=== PATIENT | male | born 1930 | race Caucasian/White ===

== ENCOUNTER → 2016-11-15 | Outpatient (CLI) | payer OTHER ==
[2016-11-15 12:44] LABS: Basophils # (auto) 0 uL; Basophils % (auto) 0.4 % (0.0-2.0); CONDITION Y; Eosinophils # (auto) 0.2 uL; Eosinophils % (auto) 2.5 % (0.0-7.0); Hematocrit 44.3 % (41.0-53.0); Hemoglobin 15.3 g/dL (13.5-17.5); Lymphocytes # (auto) 1.5 uL; Lymphocytes % (auto) 20.9 % (10.0-50.0); Mean Corpuscular Hemoglobin 31.5 pg (28.0-32.0); Mean Corpuscular Hgb Conc. 34.4 g/dL (32.0-36.0); Mean Corpuscular Volume 91.5 fL (80.0-100.0); Mean Platelet Volume 8.5 fL (7.4-10.4); Monocytes # (auto) 0.7 uL; Monocytes % (auto) 9.4 % (0.0-12.0); Neutrophils # (auto) 4.8 uL; Neutrophils % (auto) 66.8 % (37.0-80.0); Platelet Count (auto) 216 10^3/uL (140-450); White Blood Cell 7.2 10^3/uL (4.4-10.8)
[2016-11-15 12:46] LABS: Urine Bilirubin Negative (Negative); Urine Blood Negative /uL (Negative); Urine Color Yellow (Yellow); Urine Glucose Normal (Normal); Urine Ketone Negative (Negative); Urine Mucus FEW (None Seen); Urine Nitrite Negative (Negative); Urine RBC <1 /hpf (0 - 3); Urine Squamous Epithelial Cell FEW /hpf (<5); Urine pH 5.5 (5.0-8.0)
[2016-11-15 13:04] LABS: Albumin 4.1 g/dL (3.4-5.0); BUN/Creatinine Ratio 23.6; Bilirubin, Total 0.9 mg/dL (0.2-1.0); Calcium 9.1 mg/dL (8.5-10.1); Potassium 4.2 mmol/L (3.5-5.1); Total Protein 7.1 g/dL (6.4-8.2)
== END | disposition home or self-care (01) ==
LOC: LAB 12:14
PROVIDERS: ATTEND Internal Medicine
DX: I10 Essential (primary) hypertension (principal); E78.2 Mixed hyperlipidemia; E55.9 Vitamin D deficiency, unspecified
CPT/HCPCS: 36415; 80053; 81001; 82306; 84153; 84443; 85025

== ENCOUNTER → 2017-04-03 | Outpatient (CLI) | payer OTHER | END | disposition home or self-care (01) | LOC: XYW 09:24 | PROVIDERS: ATTEND Internal Medicine Cardiovascular Disease | DX: I42.9 Cardiomyopathy, unspecified (principal) | CPT/HCPCS: 93306 ==

== ENCOUNTER → 2017-06-05 | Outpatient (CLI) | payer OTHER ==
[2017-06-05 10:06] LABS: Basophils # (auto) 0 uL; Basophils % (auto) 0.4 % (0.0-2.0); Eosinophils # (auto) 0.1 uL; Hematocrit 45.8 % (41.0-53.0); Hemoglobin 15.5 g/dL (13.5-17.5); Lymphocytes # (auto) 1.5 uL; Lymphocytes % (auto) 21.9 % (10.0-50.0); Mean Corpuscular Hgb Conc. 33.9 g/dL (32.0-36.0); Mean Corpuscular Volume 91.5 fL (80.0-100.0); Monocytes # (auto) 0.6 uL; Monocytes % (auto) 8.3 % (0.0-12.0); Neutrophils # (auto) 4.6 uL; Neutrophils % (auto) 67.4 % (37.0-80.0); Nucleated Red Blood Cells % 0.2 %; Platelet Count (auto) 175 10^3/uL (140-450); Red Cell Distribution Width 13.7 % (11.8-14.3); White Blood Cell 6.8 10^3/uL (4.4-10.8)
[2017-06-05 10:40] LABS: BUN/Creatinine Ratio 14.3; Bilirubin, Total 1.1 mg/dL (0.2-1.0); Calcium 8.9 mg/dL (8.5-10.1); Potassium 4.2 mmol/L (3.5-5.1); Total Protein 7.2 g/dL (6.4-8.2)
== END | disposition home or self-care (01) ==
LOC: LAB 09:40
PROVIDERS: ATTEND Physician Assistant
DX: I11.0 Hypertensive heart disease with heart failure (principal); I50.20 Unspecified systolic (congestive) heart failure; I25.5 Ischemic cardiomyopathy; E78.4 Other hyperlipidemia
CPT/HCPCS: 36415; 80053; 80061; 85025

== ENCOUNTER → 2018-07-28 | Outpatient (CLI) | payer OTHER ==
[2018-07-28 09:12] LABS: Basophils # (auto) 0 uL; Basophils % (auto) 0.3 % (0.0-2.0); Eosinophils # (auto) 0.1 uL; Eosinophils % (auto) 1.9 % (0.0-7.0); Hematocrit 44.7 % (41.0-53.0); Hemoglobin 15.3 g/dL (13.5-17.5); Lymphocytes # (auto) 1.1 uL; Lymphocytes % (auto) 17.4 % (10.0-50.0); Mean Corpuscular Hemoglobin 31.9 pg (28.0-32.0); Mean Corpuscular Hgb Conc. 34.2 g/dL (32.0-36.0); Mean Corpuscular Volume 93.1 fL (80.0-100.0); Monocytes # (auto) 0.5 uL; Monocytes % (auto) 8.1 % (0.0-12.0); Neutrophils # (auto) 4.6 uL; Neutrophils % (auto) 72.3 % (37.0-80.0); Platelet Count (auto) 158 10^3/uL (140-450); Red Cell Distribution Width 13.9 % (11.8-14.3); White Blood Cell 6.3 10^3/uL (4.4-10.8)
[2018-07-28 10:22] LABS: Albumin 4.1 g/dL (3.4-5.0); Potassium 4.2 mmol/L (3.5-5.1)
[2018-07-28 10:29] LABS: BUN/Creatinine Ratio 18.2; Bilirubin, Total 0.9 mg/dL (0.2-1.0); Calcium 8.9 mg/dL (8.5-10.1); Total Protein 7.1 g/dL (6.4-8.2)
== END | disposition home or self-care (01) ==
LOC: LAB 08:23
PROVIDERS: ATTEND Physician Assistant
DX: Z12.5 Encounter for screening for malignant neoplasm of prostate (principal); I42.9 Cardiomyopathy, unspecified; I25.9 Chronic ischemic heart disease, unspecified; I10 Essential (primary) hypertension
CPT/HCPCS: 36415; 80053; 80061; 84153; 85025

== ENCOUNTER → 2019-02-03 | Outpatient (CLI) | payer OTHER ==
[2019-02-03 13:25] LABS: Urine Blood Negative /uL (Negative); Urine Specific Gravity 1.017 (1.001-1.035)
== END | disposition home or self-care (01) ==
LOC: LAB 12:38
DX: R35.1 Nocturia (principal); R53.1 Weakness
CPT/HCPCS: 81003; 84153

== ENCOUNTER 2019-04-09 05:53 | Emergency (ER) | payer OTHER ==
[~2019-04-09] VITALS: Ht 177.8 cm; Wt 77.1 kg
[2019-04-09 07:12] LABS: Basophils # (auto) 0 uL; Basophils % (auto) 0.1 % (0.0-2.0); Eosinophils # (auto) 0 uL; Eosinophils % (auto) 0.2 % (0.0-7.0); Hematocrit 32.3 % (41.0-53.0); Hemoglobin 11.3 g/dL (13.5-17.5); Lymphocytes # (auto) 0.6 uL; Lymphocytes % (auto) 6.3 % (10.0-50.0); Mean Corpuscular Hemoglobin 32.6 pg (28.0-32.0); Mean Corpuscular Volume 93.4 fL (80.0-100.0); Monocytes # (auto) 0.7 uL; Monocytes % (auto) 6.9 % (0.0-12.0); Neutrophils # (auto) 8.7 uL; Neutrophils % (auto) 86.5 % (37.0-80.0); Platelet Count (auto) 135 10^3/uL (140-450); Red Blood Cells 3.46 10^6/uL (4.5-5.90); Red Cell Distribution Width 13.7 % (11.8-14.3)
[2019-04-09 07:37] LABS: Albumin 3.2 g/dL (3.4-5.0); Anion Gap 8 (5-15); Blood Urea Nitrogen 19 mg/dL (7-18); Calcium 7.8 mg/dL (8.5-10.1); Carbon Dioxide 25 mmol/L (21-32); Chloride 113 mmol/L (98-107); Glucose 109 mg/dL (74-106); Magnesium 2.1 mg/dL (1.6-2.6); Potassium 3.6 mmol/L (3.5-5.1); Sodium 146 mmol/L (136-145)
[2019-04-09 07:42] LABS: Alanine Aminotransferase 20 U/L (16-61); Alkaline Phosphatase 65 U/L (45-117); Aspartate Aminotransferase 20 U/L (15-37); BUN/Creatinine Ratio 25.3; Bilirubin, Total 0.9 mg/dL (0.2-1.0); GFR African American 127 mL/min; GFR Non-African American 105 mL/min; Total Protein 5.5 g/dL (6.4-8.2)
[2019-04-09 08:00] VITALS: BP 123/48
[2019-04-09 08:34] LABS: Urine Bacteria NONE SEEN /hpf (None Seen); Urine Blood Negative /uL (Negative); Urine Hyaline Cast FEW /lpf (0 - 2); Urine Mucus FEW (None Seen); Urine Specific Gravity 1.028 (1.001-1.035); Urine WBC 4 /hpf (0 - 3)
== END 2019-04-09 10:50 | disposition home or self-care (01) ==
LOC: ER 05:53 → EDBD 05:53 → ER 10:50
DX: E87.0 Hyperosmolality and hypernatremia (principal); E46 Unspecified protein-calorie malnutrition; I10 Essential (primary) hypertension
CPT/HCPCS: 36415; 70450; 80053; 81001; 83735; 84484; 85025; 93005

== ENCOUNTER 2019-06-26 12:54 | Emergency (ER) | payer OTHER ==
[~2019-06-26] VITALS: Ht 177.8 cm; Wt 79.4 kg
[2019-06-26 15:29] LABS: Basophils # (auto) 0 uL; Basophils % (auto) 0.4 % (0.0-2.0); Eosinophils # (auto) 0.2 uL; Eosinophils % (auto) 2.8 % (0.0-7.0); Hematocrit 38.9 % (41.0-53.0); Hemoglobin 13.3 g/dL (13.5-17.5); Lymphocytes # (auto) 1.1 uL; Lymphocytes % (auto) 17.8 % (10.0-50.0); Mean Corpuscular Hemoglobin 32.4 pg (28.0-32.0); Mean Corpuscular Hgb Conc. 34.1 g/dL (32.0-36.0); Monocytes # (auto) 0.5 uL; Monocytes % (auto) 8.4 % (0.0-12.0); Neutrophils # (auto) 4.3 uL; Neutrophils % (auto) 70.6 % (37.0-80.0); Nucleated Red Blood Cells % 0.1 %; Platelet Count (auto) 170 10^3/uL (140-450); White Blood Cell 6.1 10^3/uL (4.4-10.8)
[2019-06-26 15:46] LABS: Albumin 3.7 g/dL (3.4-5.0); Calcium 8.7 mg/dL (8.5-10.1); Potassium 4.1 mmol/L (3.5-5.1)
[2019-06-26 15:48] LABS: BUN/Creatinine Ratio 26.3
[2019-06-26 15:53] LABS: Bilirubin, Total 0.5 mg/dL (0.2-1.0); Total Protein 6.4 g/dL (6.4-8.2)
[2019-06-26] MEDS ORDERED: IOHEXOL 300 MG/ML 100ML BOTTLE IJ ONE (16:03)
[2019-06-26 18:41] VITALS: BP 143/92
== END 2019-06-26 18:52 | disposition home or self-care (01) ==
LOC: ER 13:06
DX: K40.90 Unilateral inguinal hernia, without obstruction or gangrene, not specified as recurrent (principal); I10 Essential (primary) hypertension; Z86.73 Personal history of transient ischemic attack (TIA), and cerebral infarction without residual deficits
CPT/HCPCS: 36415; 74177; 80053; 83690; 85025; 93005; 99285; Q9967

== ENCOUNTER → 2019-07-09 | Outpatient (CLI) | payer OTHER ==
[2019-07-09 10:46] LABS: Calcium 9.5 mg/dL (8.5-10.1)
[2019-07-09 10:50] LABS: BUN/Creatinine Ratio 27.5; Magnesium 2.1 mg/dL (1.6-2.6)
== END | disposition home or self-care (01) ==
LOC: LAB 10:05
PROVIDERS: ATTEND Internal Medicine
DX: I25.119 Atherosclerotic heart disease of native coronary artery with unspecified angina pectoris (principal); I10 Essential (primary) hypertension
CPT/HCPCS: 36415; 80048; 80061; 83735; 83880

== ENCOUNTER → 2019-07-22 | Outpatient (CLI) | payer OTHER ==
[2019-07-13 12:08] LABS: Basophils # (auto) 0 10 ^3/uL (0-0.2); Basophils % (auto) 0.4 % (0.0-2.0); Eosinophils # (auto) 0.2 10 ^3/uL (0-0.8); Hematocrit 41.4 % (41.0-53.0); Hemoglobin 14.4 g/dL (13.5-17.5); Lymphocytes # (auto) 1.4 10 ^3/uL (0.4-5.4); Lymphocytes % (auto) 23.3 % (10.0-50.0); Mean Corpuscular Hemoglobin 32.2 pg (28.0-32.0); Mean Corpuscular Hgb Conc. 34.7 g/dL (32.0-36.0); Mean Corpuscular Volume 92.9 fL (80.0-100.0); Monocytes # (auto) 0.5 10 ^3/uL (0-1.3); Monocytes % (auto) 9.3 % (0.0-12.0); Neutrophils # (auto) 3.7 10 ^3/uL (1.6-8.6); Nucleated Red Blood Cells % 0.1 %; Platelet Count (auto) 154 10^3/uL (140-450); Red Blood Cells 4.46 10^6/uL (4.5-5.90); Red Cell Distribution Width 13.7 % (11.8-14.3); White Blood Cell 5.8 10^3/uL (4.4-10.8)
[2019-07-13 12:20] LABS: Urine Bacteria NONE SEEN /hpf (None Seen); Urine Blood Negative /uL (Negative); Urine WBC 2 /hpf (0 - 3)
[2019-07-13 12:36] LABS: INR 1.11 (0.9-1.15); Partial Thromboplastin Time 28.8 sec (23.64-32.05)
[2019-07-13 12:49] LABS: Potassium 5.1 mmol/L (3.5-5.1)
[2019-07-13 13:00] LABS: Albumin 4.3 g/dL (3.4-5.0); BUN/Creatinine Ratio 34.4; Bilirubin, Total 1.1 mg/dL (0.2-1.0); Calcium 9.6 mg/dL (8.5-10.1); Total Protein 7.4 g/dL (6.4-8.2)
[2019-07-15 08:50] VITALS: BP 128/72
[2019-07-20 14:11] LABS: Basophils # (auto) 0 10 ^3/uL (0-0.2); Basophils % (auto) 0.5 % (0.0-2.0); Eosinophils # (auto) 0.1 10 ^3/uL (0-0.8); Eosinophils % (auto) 2.4 % (0.0-7.0); Hemoglobin 13.1 g/dL (13.5-17.5); Lymphocytes # (auto) 1.2 10 ^3/uL (0.4-5.4); Lymphocytes % (auto) 20.4 % (10.0-50.0); Mean Corpuscular Hemoglobin 32.5 pg (28.0-32.0); Mean Corpuscular Hgb Conc. 34.5 g/dL (32.0-36.0); Mean Corpuscular Volume 94.2 fL (80.0-100.0); Monocytes # (auto) 0.5 10 ^3/uL (0-1.3); Monocytes % (auto) 9.3 % (0.0-12.0); Neutrophils # (auto) 3.9 10 ^3/uL (1.6-8.6); Neutrophils % (auto) 67.4 % (37.0-80.0); Platelet Count (auto) 133 10^3/uL (140-450); Red Blood Cells 4.03 10^6/uL (4.5-5.90); Red Cell Distribution Width 13.8 % (11.8-14.3); White Blood Cell 5.7 10^3/uL (4.4-10.8)
[2019-07-20 14:22] LABS: INR 1.15 (0.9-1.15); Partial Thromboplastin Time 29.1 sec (23.64-32.05)
[2019-07-20 14:29] LABS: Potassium 4.2 mmol/L (3.5-5.1)
[2019-07-20 14:36] LABS: Albumin 3.8 g/dL (3.4-5.0); Bilirubin, Total 0.9 mg/dL (0.2-1.0); Calcium 9.4 mg/dL (8.5-10.1); Total Protein 6.6 g/dL (6.4-8.2)
[~2019-07-22] VITALS: Ht 177.8 cm; Wt 68.0 kg
[~2019-07-22] MED LIST: ASPI-404 PO; BENA5TAB5 PO; BUPIVACAINE 0.25% INJ 50ML VIAL ONE; BUPIVACAINE W/ EPINEPH 0.25% INJ 50ML MDV ONE; CARV6.2551 PO; CLOP75TA41 PO; FINA5TAB4 PO; FURO40TA4 PO; MELA3TAB27 PO; METO25TA5 PO; MULT1TAB56 PO; NITR1SPR TL; SIMV-8 PO; TAMS0.4C36 PO; ZOLP-158 PO; ceFAZolin 1GM/50ML 50 ML IV ONE
== END | disposition home or self-care (01) ==
LOC: SUR 07-15 08:36 → EDSTATUS 10:15 → LAB 13:12
PROVIDERS: ATTEND Surgery
DX: K40.90 Unilateral inguinal hernia, without obstruction or gangrene, not specified as recurrent (principal); Z53.8 Procedure and treatment not carried out for other reasons; I72.9 Aneurysm of unspecified site; Z98.890 Other specified postprocedural states; Z79.899 Other long term (current) drug therapy; Z79.01 Long term (current) use of anticoagulants
CPT/HCPCS: 36415; 80053; 81001; 85025; 85610; 85730; J0690; J3490

== ENCOUNTER 2019-09-09 06:57 | Inpatient (IN) | payer OTHER ==
[2019-09-07 13:09] LABS: Basophils # (auto) 0 10 ^3/uL (0-0.2); Basophils % (auto) 0.3 % (0.0-2.0); Eosinophils # (auto) 0.1 10 ^3/uL (0-0.8); Eosinophils % (auto) 1.7 % (0.0-7.0); Hematocrit 39.6 % (41.0-53.0); Hemoglobin 13.5 g/dL (13.5-17.5); Lymphocytes % (auto) 14.9 % (10.0-50.0); Mean Corpuscular Hemoglobin 32.7 pg (28.0-32.0); Monocytes # (auto) 0.6 10 ^3/uL (0-1.3); Neutrophils % (auto) 74.1 % (37.0-80.0); Nucleated Red Blood Cells % 0.2 %; Platelet Count (auto) 156 10^3/uL (140-450); Red Blood Cells 4.13 10^6/uL (4.5-5.90); Red Cell Distribution Width 13.7 % (11.8-14.3); White Blood Cell 6.7 10^3/uL (4.4-10.8)
[2019-09-07 13:15] LABS: Urine Bacteria NONE SEEN /hpf (None Seen); Urine Blood Negative /uL (Negative); Urine Hyaline Cast MANY /lpf (0 - 2); Urine Mucus FEW (None Seen); Urine Specific Gravity 1.013 (1.001-1.035); Urine WBC 4 /hpf (0 - 3)
[2019-09-07 13:23] LABS: INR 1.14 (0.9-1.15); Partial Thromboplastin Time 28.2 sec (23.64-32.05)
[2019-09-07 13:29] LABS: Calcium 8.7 mg/dL (8.5-10.1); Potassium 3.6 mmol/L (3.5-5.1)
[2019-09-07 13:35] LABS: Albumin 3.8 g/dL (3.4-5.0); BUN/Creatinine Ratio 22.4; Bilirubin, Total 0.8 mg/dL (0.2-1.0); Total Protein 6.7 g/dL (6.4-8.2)
[~2019-09-09] VITALS: Ht 177.8 cm; Wt 60.0 kg
[~2019-09-09 06:57] MED LIST changes: -ASPI-404 PO; -BUPIVACAINE 0.25% INJ 50ML VIAL ONE; -BUPIVACAINE W/ EPINEPH 0.25% INJ 50ML MDV ONE; -CARV6.2551 PO; -MELA3TAB27 PO; -ZOLP-158 PO; -ceFAZolin 1GM/50ML 50 ML IV ONE
[2019-09-09] MEDS ORDERED: ceFAZolin 1GM/50ML 50 ML IV ONE (07:03)
[2019-09-09] MEDS ORDERED: BUPIVACAINE W/ EPINEPH 0.25% INJ 50ML MDV ONE (08:10)
[2019-09-09] MEDS ORDERED: LIDOCAINE 1% HCL (LOCAL ANESTH.) INJ 20ML MDV ONE (08:39)
[2019-09-09] MEDS ORDERED: SUCCINYLCHOLINE CHLORIDE 20 MG/ML 10ML VIAL IV ONE (08:39)
[2019-09-09] MEDS ORDERED: ROCURONIUM 10MG/ML 10ML VIAL IV ONE (08:43)
[2019-09-09] MEDS ORDERED: ETOMIDATE (2MG/ML) 20ML VIAL IV ONE (08:43)
[2019-09-09] MEDS ORDERED: FUROSEMIDE 20 MG/2 ML VIAL ONE (09:01)
[2019-09-09] MEDS ORDERED: DexAMETHasone SOD PHOS 10MG/1ML VIAL INJ ONE (09:18)
[2019-09-09] MEDS ORDERED: NALOXONE HCL 0.4 MG/ML VIAL IV PRN (09:30)
[2019-09-09] MEDS ORDERED: ONDANSETRON HCL 4 MG/2 ML VIAL IV PRN (09:30)
[2019-09-09] MEDS ORDERED: HYDROmorphone HCL 2 MG/ML VL IV PRN (09:30)
[2019-09-09] MEDS ORDERED: GLYCOPYRROLATE 0.2 MG/ML 1ML VIAL ONE (09:41)
[2019-09-09] MEDS ORDERED: NEOSTIGMINE 1 MG/ML INJ (10mg/10ML VIAL) ONE (09:41)
[2019-09-09] MEDS ORDERED: hydrALAZINE HCL 20 MG/ML VL IV ONE (09:56)
[2019-09-09] MEDS ORDERED: hydrALAZINE HCL 20 MG/ML VL ONE (09:56)
[2019-09-09] MEDS ORDERED: MAGNESIUM SULFATE 1GM/100ML 100 ML IV ONE (11:00)
[2019-09-09] MEDS ORDERED: NITROGLYCERIN 0.4 MG SL TAB SL PRN (11:00)
[2019-09-09] MEDS ORDERED: MORPHINE SULF INJ 2 MG/ML SYRINGE 1ML IV PRN (11:00)
[2019-09-09] MEDS ORDERED: HYDROmorphone HCL 2 MG/ML VL ONE (12:04)
[2019-09-09] MEDS ORDERED: HALOPERIDOL LACTATE 5 MG/ML INJ VIAL IM ONE (12:45)
[2019-09-09] MEDS: ACETAMINOPHEN/CODEINE#3 (300/30mg) TAB PO PRN (13:56)
[2019-09-09] MEDS: ceFAZolin 1GM/50ML 50 ML IV SCH ×2 (14:00→22:00)
[2019-09-09 16:13] LABS: Calcium 8.8 mg/dL (8.5-10.1); Potassium 3.6 mmol/L (3.5-5.1)
[2019-09-09 16:16] LABS: BUN/Creatinine Ratio 21.8
[2019-09-09] MEDS: TAMSULOSIN HYDROCHLORIDE 0.4 MG CAP PO SCH (17:52)
[2019-09-09] MEDS: FUROSEMIDE 40 MG TAB PO SCH (17:53)
[2019-09-09] MEDS: ATORVASTATIN 20 MG TAB PO SCH (19:51)
[2019-09-09] MEDS: METOPROLOL TARTRATE 25 MG TAB PO SCH (19:52)
[2019-09-09] MEDS ORDERED: MELA3TAB27 PO (23:23)
[2019-09-09] MEDS: MORPHINE SULF INJ 2 MG/ML SYRINGE 1ML IV PRN (23:39)
[2019-09-10] MEDS: ACETAMINOPHEN/CODEINE#3 (300/30mg) TAB PO PRN ×2 (04:08→20:40)
[2019-09-10 04:27] VITALS: BP 149/93
[2019-09-10 04:29] VITALS: BP 151/90
[2019-09-10] MEDS: ceFAZolin 1GM/50ML 50 ML IV SCH (05:26)
[2019-09-10] MEDS: FUROSEMIDE 40 MG TAB PO SCH ×2 (05:36→18:41)
[2019-09-10 06:10] LABS: Basophils # (auto) 0 10 ^3/uL (0-0.2); Basophils % (auto) 0.2 % (0.0-2.0); Eosinophils # (auto) 0 10 ^3/uL (0-0.8); Eosinophils % (auto) 0.2 % (0.0-7.0); Hematocrit 42.3 % (41.0-53.0); Lymphocytes # (auto) 1.6 10 ^3/uL (0.4-5.4); Lymphocytes % (auto) 13.5 % (10.0-50.0); Mean Corpuscular Hemoglobin 32.2 pg (28.0-32.0); Mean Corpuscular Hgb Conc. 33.1 g/dL (32.0-36.0); Mean Corpuscular Volume 97.2 fL (80.0-100.0); Monocytes # (auto) 1.3 10 ^3/uL (0-1.3); Monocytes % (auto) 10.9 % (0.0-12.0); Neutrophils # (auto) 8.7 10 ^3/uL (1.6-8.6); Neutrophils % (auto) 75.2 % (37.0-80.0); Platelet Count (auto) 166 10^3/uL (140-450); Red Blood Cells 4.35 10^6/uL (4.5-5.90); Red Cell Distribution Width 13.9 % (11.8-14.3); White Blood Cell 11.6 10^3/uL (4.4-10.8)
[2019-09-10 06:31] LABS: Albumin 3.7 g/dL (3.4-5.0); Calcium 8.9 mg/dL (8.5-10.1); Magnesium 2.6 mg/dL (1.6-2.6); Potassium 3.5 mmol/L (3.5-5.1)
[2019-09-10 06:33] LABS: Bilirubin, Total 1.4 mg/dL (0.2-1.0); Total Protein 6.8 g/dL (6.4-8.2)
[2019-09-10 09:00] VITALS: BP 107/69
[2019-09-10] MEDS: FINASTERIDE 5 MG TAB PO SCH (10:37)
[2019-09-10] MEDS: PANTOPRAZOLE 40 MG TAB PO SCH (10:37)
[2019-09-10] MEDS: METOPROLOL TARTRATE 25 MG TAB PO SCH (10:37)
[2019-09-10] MEDS ORDERED: cefTRIAXone 1GM/50ML D5W 50 ML IV ONE (12:00)
[2019-09-10 14:00] VITALS: BP 145/83
[2019-09-10] MEDS: TAMSULOSIN HYDROCHLORIDE 0.4 MG CAP PO SCH (18:41)
[2019-09-10 20:00] VITALS: BP 153/81
[2019-09-10] MEDS: ATORVASTATIN 20 MG TAB PO SCH (22:00)
[2019-09-11] VITALS (16 sets, daily range): BP systolic 102–153; BP diastolic 56–96
[2019-09-11] MEDS: METOPROLOL TARTRATE 25 MG TAB PO SCH ×3 (00:33→21:08)
[2019-09-11] MEDS: MORPHINE SULF INJ 2 MG/ML SYRINGE 1ML IV PRN (01:07)
[2019-09-11 03:36] LABS: Basophils # (auto) 0 10 ^3/uL (0-0.2); Basophils % (auto) 0.1 % (0.0-2.0); Eosinophils # (auto) 0 10 ^3/uL (0-0.8); Eosinophils % (auto) 0.1 % (0.0-7.0); Hematocrit 39.2 % (41.0-53.0); Hemoglobin 13.3 g/dL (13.5-17.5); Lymphocytes % (auto) 10.6 % (10.0-50.0); Mean Corpuscular Hemoglobin 32.4 pg (28.0-32.0); Mean Corpuscular Hgb Conc. 33.9 g/dL (32.0-36.0); Mean Corpuscular Volume 95.6 fL (80.0-100.0); Monocytes % (auto) 10.9 % (0.0-12.0); Neutrophils # (auto) 7.1 10 ^3/uL (1.6-8.6); Neutrophils % (auto) 78.3 % (37.0-80.0); Platelet Count (auto) 146 10^3/uL (140-450); Red Blood Cells 4.11 10^6/uL (4.5-5.90); Red Cell Distribution Width 13.7 % (11.8-14.3); White Blood Cell 9.1 10^3/uL (4.4-10.8)
[2019-09-11 03:59] LABS: BUN/Creatinine Ratio 25.3; Calcium 8.2 mg/dL (8.5-10.1); Potassium 3.4 mmol/L (3.5-5.1)
[2019-09-11 04:30] LABS: INR 1.05 (0.9-1.15); Partial Thromboplastin Time 32.3 sec (23.64-32.05)
[2019-09-11] MEDS: FUROSEMIDE 40 MG TAB PO SCH ×2 (06:00→17:57)
[2019-09-11] MEDS ORDERED: POTASSIUM CHL 20 Meq TABLET PO ONE (07:30)
[2019-09-11] MEDS: cefTRIAXone 1GM/50ML D5W 50 ML IV SCH (08:38)
[2019-09-11] MEDS: FINASTERIDE 5 MG TAB PO SCH (08:39)
[2019-09-11] MEDS: PANTOPRAZOLE 40 MG TAB PO SCH (08:40)
[2019-09-11] MEDS ORDERED: IODIXANOL 320MG/ML 100ML BTL IV ONE ×3 (09:28→10:36)
[2019-09-11] MEDS ORDERED: LIDOCAINE 2%HCL (LOCAL ANESTH.) INJ 20ML MDV ONE (09:28)
[2019-09-11] MEDS ORDERED: VERAPAMIL 2.5MG/ML INJ 2ML VIAL IV ONE (09:34)
[2019-09-11] MEDS ORDERED: fentaNYL CITRATE 100 MCG/2 ML VL ONE (09:34)
[2019-09-11] MEDS ORDERED: HEPARIN SODIUM (PORCINE) 5000 UNITS/ML 1ML VIAL ONE (09:34)
[2019-09-11] MEDS ORDERED: MIDAZOLAM HCL 1MG/1ML-2 ML VIAL ONE (09:35)
[2019-09-11] MEDS ORDERED: SODIUM CHL 0.9% 50 ML ONE (10:06)
[2019-09-11] MEDS ORDERED: ANGIOMAX 250 MG VIAL IV ONE (10:06)
[2019-09-11] MEDS ORDERED: hydrALAZINE HCL 20 MG/ML VL ONE (10:11)
[2019-09-11] MEDS ORDERED: VANCOMYCIN 1GM/250ML 250 ML IV ONE (11:04)
[2019-09-11] MEDS: TAMSULOSIN HYDROCHLORIDE 0.4 MG CAP PO SCH (17:57)
[2019-09-11] MEDS: ATORVASTATIN 20 MG TAB PO SCH (20:44)
[2019-09-12] VITALS: BP 141/73
[2019-09-12] MEDS ORDERED: LABETALOL HCL 5 MG/ML ML 20ML VIAL IV ONE (00:10)
[2019-09-12] MEDS: LABETALOL HCL 5 MG/ML 4ML SYRINGE IV PRN ×2 (00:15→03:58)
[2019-09-12] MEDS: FUROSEMIDE 40 MG TAB PO SCH ×2 (05:53→17:47)
[2019-09-12 08:00] VITALS: BP 150/78
[2019-09-12] MEDS: PANTOPRAZOLE 40 MG TAB PO SCH (09:59)
[2019-09-12] MEDS: cefTRIAXone 1GM/50ML D5W 50 ML IV SCH (09:59)
[2019-09-12] MEDS: FINASTERIDE 5 MG TAB PO SCH (09:59)
[2019-09-12] MEDS: METOPROLOL TARTRATE 25 MG TAB PO SCH ×2 (09:59→20:28)
[2019-09-12 12:00] VITALS: BP 139/64
[2019-09-12] MEDS ORDERED: POTASSIUM CHL 20 Meq TABLET PO ONE (12:30)
[2019-09-12 15:45] VITALS: BP 150/85
[2019-09-12] MEDS: TAMSULOSIN HYDROCHLORIDE 0.4 MG CAP PO SCH (17:47)
[2019-09-12 20:00] VITALS: BP 157/94
[2019-09-12] MEDS: traMADol HCL 50 MG TAB PO PRN (20:28)
[2019-09-12] MEDS: ATORVASTATIN 20 MG TAB PO SCH (20:28)
[2019-09-13] VITALS: BP 113/55
[2019-09-13 04:00] VITALS: BP 113/64
[2019-09-13] MEDS: FUROSEMIDE 40 MG TAB PO SCH ×2 (05:05→17:51)
[2019-09-13] MEDS: traMADol HCL 50 MG TAB PO PRN (05:05)
[2019-09-13 07:45] VITALS: BP 107/68
[2019-09-13] MEDS: METOPROLOL TARTRATE 25 MG TAB PO SCH ×2 (09:07→21:32)
[2019-09-13] MEDS: PANTOPRAZOLE 40 MG TAB PO SCH (09:07)
[2019-09-13] MEDS: cefTRIAXone 1GM/50ML D5W 50 ML IV SCH (09:07)
[2019-09-13] MEDS: FINASTERIDE 5 MG TAB PO SCH (09:07)
[2019-09-13 11:45] VITALS: BP 120/58
[2019-09-13] MEDS: LABETALOL HCL 5 MG/ML 4ML SYRINGE IV PRN (11:53)
[2019-09-13 15:40] VITALS: BP 99/56
[2019-09-13] MEDS: TAMSULOSIN HYDROCHLORIDE 0.4 MG CAP PO SCH (17:40)
[2019-09-13 20:00] VITALS: BP 107/63
[2019-09-13] MEDS ORDERED: LORazepam 2MG/ML-1ML VIAL ONE (20:48)
[2019-09-13] MEDS: ATORVASTATIN 20 MG TAB PO SCH (21:32)
[2019-09-13] MEDS: MORPHINE SULF INJ 2 MG/ML SYRINGE 1ML IV PRN (21:33)
[2019-09-14] VITALS (8 sets, daily range): BP systolic 108–169; BP diastolic 52–103
[2019-09-14] MEDS: LORazepam 2MG/ML-1ML VIAL IV PRN (00:16)
[2019-09-14 03:36] LABS: Basophils # (auto) 0 10 ^3/uL (0-0.2); Basophils % (auto) 0.4 % (0.0-2.0); Eosinophils # (auto) 0.3 10 ^3/uL (0-0.8); Eosinophils % (auto) 3.5 % (0.0-7.0); Hemoglobin 13.9 g/dL (13.5-17.5); Mean Corpuscular Hemoglobin 32.6 pg (28.0-32.0); Mean Corpuscular Hgb Conc. 34.7 g/dL (32.0-36.0); Mean Corpuscular Volume 94.1 fL (80.0-100.0); Monocytes # (auto) 0.9 10 ^3/uL (0-1.3); Monocytes % (auto) 12.6 % (0.0-12.0); Neutrophils # (auto) 5.2 10 ^3/uL (1.6-8.6); Neutrophils % (auto) 69.5 % (37.0-80.0); Nucleated Red Blood Cells % 0.2 %; Platelet Count (auto) 153 10^3/uL (140-450); Red Blood Cells 4.26 10^6/uL (4.5-5.90); Red Cell Distribution Width 13.5 % (11.8-14.3); White Blood Cell 7.5 10^3/uL (4.4-10.8)
[2019-09-14 03:49] LABS: INR 1.08 (0.9-1.15); Partial Thromboplastin Time 30.4 sec (23.64-32.05)
[2019-09-14 03:54] LABS: Calcium 8.8 mg/dL (8.5-10.1); Potassium 3.9 mmol/L (3.5-5.1)
[2019-09-14 03:55] LABS: BUN/Creatinine Ratio 37.3
[2019-09-14] MEDS: FUROSEMIDE 40 MG TAB PO SCH ×2 (06:00→17:34)
[2019-09-14] MEDS: FINASTERIDE 5 MG TAB PO SCH (09:49)
[2019-09-14] MEDS: cefTRIAXone 1GM/50ML D5W 50 ML IV SCH (09:49)
[2019-09-14] MEDS: METOPROLOL TARTRATE 25 MG TAB PO SCH ×2 (09:49→22:49)
[2019-09-14] MEDS: PANTOPRAZOLE 40 MG TAB PO SCH (09:49)
[2019-09-14] MEDS ORDERED: IODIXANOL 320MG/ML 100ML BTL IV ONE (12:35)
[2019-09-14] MEDS ORDERED: LIDOCAINE 2%HCL (LOCAL ANESTH.) INJ 20ML MDV ONE (12:35)
[2019-09-14] MEDS ORDERED: IOHEXOL 350 MG/ML 100ML IJ ONE ×3 (12:40→14:02)
[2019-09-14] MEDS ORDERED: fentaNYL CITRATE 100 MCG/2 ML VL ONE (13:03)
[2019-09-14] MEDS ORDERED: ANGIOMAX 250 MG VIAL IV ONE (13:03)
[2019-09-14] MEDS ORDERED: MIDAZOLAM HCL 1MG/1ML-2 ML VIAL ONE (13:04)
[2019-09-14] MEDS ORDERED: SODIUM CHL 0.9% 50 ML ONE (13:04)
[2019-09-14] MEDS ORDERED: ATROPINE SULF 1 MG/10ml SYR ONE (13:15)
[2019-09-14] MEDS ORDERED: diphenhdrAMINE HCL 50 MG/1 ML VL ONE (13:57)
[2019-09-14] MEDS ORDERED: CLOPIDOGREL 300 MG TAB ONE (14:33)
[2019-09-14] MEDS ORDERED: ASPirin 325 MG TAB ONE (14:33)
[2019-09-14] MEDS: TAMSULOSIN HYDROCHLORIDE 0.4 MG CAP PO SCH (17:34)
[2019-09-14] MEDS: ATORVASTATIN 20 MG TAB PO SCH (22:49)
[2019-09-15] VITALS: BP 118/70
[2019-09-15 04:00] VITALS: BP 106/61
[2019-09-15] MEDS: FUROSEMIDE 40 MG TAB PO SCH ×2 (06:31→17:22)
[2019-09-15 08:00] VITALS: BP 109/67
[2019-09-15] MEDS: FINASTERIDE 5 MG TAB PO SCH (09:28)
[2019-09-15] MEDS: PANTOPRAZOLE 40 MG TAB PO SCH (09:28)
[2019-09-15] MEDS: cefTRIAXone 1GM/50ML D5W 50 ML IV SCH (09:28)
[2019-09-15] MEDS: ASPirin 81 mg TAB PO SCH (09:28)
[2019-09-15] MEDS: METOPROLOL TARTRATE 25 MG TAB PO SCH ×2 (09:29→21:26)
[2019-09-15] MEDS: CLOPIDOGREL BISULFATE 75 MG TAB PO SCH (09:29)
[2019-09-15 11:46] VITALS: BP 121/64
[2019-09-15 16:00] VITALS: BP 109/74
[2019-09-15] MEDS: TAMSULOSIN HYDROCHLORIDE 0.4 MG CAP PO SCH (17:21)
[2019-09-15 20:00] VITALS: BP 113/63
[2019-09-15] MEDS: traMADol HCL 50 MG TAB PO PRN (21:01)
[2019-09-15] MEDS: LORazepam 2MG/ML-1ML VIAL IV PRN (21:01)
[2019-09-15] MEDS: ATORVASTATIN 20 MG TAB PO SCH (21:26)
[2019-09-16] VITALS: BP 116/77
[2019-09-16] MEDS: MORPHINE SULF INJ 2 MG/ML SYRINGE 1ML IV PRN (00:13)
[2019-09-16 04:00] VITALS: BP 103/48
[2019-09-16] MEDS: LORazepam 2MG/ML-1ML VIAL IV PRN (05:19)
[2019-09-16] MEDS: FUROSEMIDE 40 MG TAB PO SCH (06:46)
[2019-09-16 07:40] VITALS: BP 119/65
[2019-09-16 09:16] VITALS: BP 119/65
[2019-09-16] MEDS: CLOPIDOGREL BISULFATE 75 MG TAB PO SCH (09:36)
[2019-09-16] MEDS: PANTOPRAZOLE 40 MG TAB PO SCH (09:36)
[2019-09-16] MEDS: ASPirin 81 mg TAB PO SCH (09:36)
[2019-09-16] MEDS: FINASTERIDE 5 MG TAB PO SCH (09:36)
[2019-09-16] MEDS: METOPROLOL TARTRATE 25 MG TAB PO SCH (09:36)
[2019-09-16] MEDS: cefTRIAXone 1GM/50ML D5W 50 ML IV SCH (09:37)
[2019-09-16 12:00] VITALS: BP 115/57
== END 2019-09-16 12:00 | disposition home or self-care (01) | DRG 246 ==
LOC: SUR 06:57 → TELE-CENTR 15:52 → DOU IN ICU 09-10 18:55
PROVIDERS: ADMIT Surgery; ATTEND Family Medicine
PROC: 0YQ60ZZ Repair Left Inguinal Region, Open Approach (ICD-10-PCS; principal; 2019-09-09 08:42)
PROC: 4A023N7 Measurement of Cardiac Sampling and Pressure, Left Heart, Percutaneous Approach (ICD-10-PCS; 2019-09-11)
PROC: B215YZZ Fluoroscopy of Left Heart using Other Contrast (ICD-10-PCS; 2019-09-11)
PROC: B211YZZ Fluoroscopy of Multiple Coronary Arteries using Other Contrast (ICD-10-PCS; 2019-09-11)
PROC: B240ZZ3 Ultrasonography of Single Coronary Artery, Intravascular (ICD-10-PCS; 2019-09-11)
PROC: 027034Z Dilation of Coronary Artery, One Artery with Drug-eluting Intraluminal Device, Percutaneous Approach (ICD-10-PCS; 2019-09-14)
PROC: 02703ZZ Dilation of Coronary Artery, One Artery, Percutaneous Approach (ICD-10-PCS; 2019-09-14)
DX: I21.4 Non-ST elevation (NSTEMI) myocardial infarction (principal); I50.43 Acute on chronic combined systolic (congestive) and diastolic (congestive) heart failure; N39.0 Urinary tract infection, site not specified; Z68.1 Body mass index [BMI] 19.9 or less, adult; K40.90 Unilateral inguinal hernia, without obstruction or gangrene, not specified as recurrent; N40.0 Benign prostatic hyperplasia without lower urinary tract symptoms; E78.5 Hyperlipidemia, unspecified; I71.2 Thoracic aortic aneurysm, without rupture; R63.6 Underweight; E78.00 Pure hypercholesterolemia, unspecified; F03.90 Unspecified dementia, unspecified severity, without behavioral disturbance, psychotic disturbance, mood disturbance, and anxiety; I11.0 Hypertensive heart disease with heart failure; I25.10 Atherosclerotic heart disease of native coronary artery without angina pectoris; I25.2 Old myocardial infarction; Z79.899 Other long term (current) drug therapy; Z95.1 Presence of aortocoronary bypass graft
CPT/HCPCS: 36415; 71045; 71250; 80048; 80053; 81001; 83735; 83880; 84484; 85025; 85379; 85610; 85730; 87086; 88302; 92920; 92928; 93005; 93306; 93458; 93970; 97163; 99152; 99153; A4565; C1874; C1887; G0378; J0330; J0690; J0696; J1100; J2001; J2250; Q9967

== ENCOUNTER 2019-12-07 13:34 | Inpatient (IN) | payer OTHER ==
[~2019-12-07] VITALS: Ht 172.7 cm; Wt 60.5 kg
[~2019-12-07 13:34] MED LIST changes: +MELA3TAB27 PO
[2019-12-07 14:43] LABS: Hematocrit 37.6 % (41.0-53.0); Hemoglobin 12.6 g/dL (13.5-17.5); Mean Corpuscular Hemoglobin 31.2 pg (28.0-32.0); Mean Corpuscular Hgb Conc. 33.5 g/dL (32.0-36.0); Mean Corpuscular Volume 93.3 fL (80.0-100.0); Platelet Count (auto) 124 10^3/uL (140-450); Red Blood Cells 4.03 10^6/uL (4.5-5.90); Red Cell Distribution Width 14.2 % (11.8-14.3); White Blood Cell 5.2 10^3/uL (4.4-10.8)
[2019-12-07 14:55] LABS: Band Neutrophils % (manual) 0; Basophils % (manual) 0 (0.0-2.0); Blast Cells 0; Eosinophils % (manual) 0 (0-7); Metamyelocytes % 0; Myelocytes % 0; Promyelocytes % 0; Reactive Lymphocytes 0
[2019-12-07 15:00] LABS: Albumin 3.4 g/dL (3.4-5.0); BUN/Creatinine Ratio 30.7; Calcium 8.5 mg/dL (8.5-10.1); Magnesium 2.3 mg/dL (1.6-2.6); Potassium 3.8 mmol/L (3.5-5.1)
[2019-12-07 15:05] LABS: Bilirubin, Total 0.8 mg/dL (0.2-1.0); Total Protein 6.5 g/dL (6.4-8.2)
[2019-12-07] MEDS ORDERED: ATORVASTATIN 20 MG TAB PO ONE (16:15)
[2019-12-07] MEDS ORDERED: DOCUSATE SOD 100 MG CAP PO PRN (16:15)
[2019-12-07] MEDS ORDERED: METOPROLOL TARTRATE 25 MG TAB PO ONE (16:15)
[2019-12-07] MEDS ORDERED: NITROGLYCERIN 0.4 MG SL TAB SL PRN ×2 (16:15)
[2019-12-07] MEDS ORDERED: HYDROcodone-ACET 5/325MG TAB PO PRN (16:15)
[2019-12-07] MEDS ORDERED: ALUM & MAG HYDROX-SIMETH LIQ(MAALOX) 30 ML PO PRN (16:15)
[2019-12-07] MEDS ORDERED: ASPirin 81 mg TAB PO ONE (16:15)
[2019-12-07] MEDS ORDERED: LACTATED RINGER'S 1,000 ML IV ONE (16:15)
[2019-12-07] MEDS ORDERED: MORPHINE SULF INJ 2 MG/ML SYRINGE 1ML IV PRN ×3 (16:15)
[2019-12-07] MEDS ORDERED: ONDANSETRON HCL 4 MG/2 ML VIAL IV PRN (16:15)
[2019-12-07] MEDS ORDERED: CLOPIDOGREL BISULFATE 75 MG TAB PO ONE (16:15)
[2019-12-07] MEDS ORDERED: ACETAMINOPHEN 325 MG TAB PO PRN (16:15)
[2019-12-07] MEDS ORDERED: ENOXAPARIN SOD 100 MG/1 ML SYRINGE SC ONE (16:15)
[2019-12-07] MEDS ORDERED: MORPHINE SULFATE 4 MG/ML SYR/VIAL IV PRN (16:15)
[2019-12-07 16:57] LABS: Alcohol, Urine < 3.0 mg/dL (0-10); Amphetamine Screen, Urine NEGATIVE (NEGATIVE); Barbiturate Scree,Urine NEGATIVE (NEGATIVE); Benzodiazephine Screen, Urine NEGATIVE (NEGATIVE); Cannabinoid Screen, Urine NEGATIVE (NEGATIVE); Cocaine Screen, Urine NEGATIVE (NEGATIVE); Opiate Scree,Urine NEGATIVE (NEGATIVE); Phencyclidine Screen, Urine NEGATIVE (NEGATIVE)
[2019-12-07 16:59] LABS: Urine Bacteria NONE SEEN /hpf (None Seen); Urine Blood Negative /uL (Negative); Urine Hyaline Cast FEW /lpf (0 - 2); Urine Specific Gravity 1.019 (1.001-1.035); Urine WBC 1 /hpf (0 - 3)
[2019-12-07] MEDS ORDERED: METO25TA93 PO (17:48)
[2019-12-07] MEDS ORDERED: MEM5T PO (17:48)
[2019-12-07] MEDS ORDERED: BENA10TA10 PO (17:48)
[2019-12-07] MEDS: SODIUM CHLORIDE 0.9% 1,000 ML IV SCH (17:59)
[2019-12-07] MEDS: TAMSULOSIN HYDROCHLORIDE 0.4 MG CAP PO SCH (18:01)
--- NOTE | 2019-12-07 18:40 | NUR ---
Patient arrived to floor. Patient shows no signs of distress at this time.
[2019-12-07 18:42] LABS: Lymphocytes % (manual) 19 (10.0-50.0); Monocytes % (manual) 16 (0-12)
--- NOTE | 2019-12-07 19:01 | NUR ---
Endorsed care to ANA Beck. Patient shows no signs of distress at this time.
--- NOTE | 2019-12-07 19:30 | NUR ---
OPENING NOTE Received report from day shift RN. Patient is A&O X's 2. Patient can tell me his name and where he is at but cannot recall why he is in the hospital. Patient is hard of hearing and sometimes does not answer questions appropriately. Educated patient on POC and to use call light when in need of assistance. Patient verbalized understanding. Bed is in lowest/locked position with side rails up X's 2 and call light is within reach of patient. Bed alarm is on. Non skid socks applied to patient and patient provided with ice water. Will continue care.
--- NOTE | 2019-12-07 19:30 | NUR ---
ADMISSION ASSESSMENT Unable to complete the whole admission assessment. Patient cannot answer questions correctly.
[2019-12-07] MEDS: ATORVASTATIN 20 MG TAB PO SCH (21:26)
--- NOTE | 2019-12-07 21:26 | NUR ---
IV Patient IV to left AC is leaking. Patient began to get upset and yell when trying to attempt to put another IV in. Unable to get IV access at this time. Patient is not cooperative. Explained reason/importance for IV. Patient still not complying at this time.
[2019-12-07] MEDS: METOPROLOL TARTRATE 25 MG TAB PO SCH (21:27)
--- NOTE | 2019-12-07 21:45 | NUR ---
WOUND PHOTOS Pictures taken of left upper arm and left forearm skin tears. band aids applied to site. Forms filled out. Wound consult placed. Patient refusing to remove pants to perform a full skin assessment. No wounds noted on feet/ back/ abdomen or lower legs
[2019-12-07 22:00] VITALS: BP 129/76
[2019-12-07] MEDS ORDERED: METOPROLOL TARTRATE 25 MG TAB PO SCH (22:00)
--- NOTE | 2019-12-07 22:48 | NUR ---
NOTE Patient continuing to be non compliant and trying to get out of bed. Patient confused. patient knows he is at a hospital but keeps attempting to get out of bed. When explaining to patient that he is a fall risk and he should be in bed at this time, patient started to yell. Patient started to become combative with BAR PILOT at bedside. After about 10-20 minutes patient finally laid down in bed. Patient shows no s/s of distress. Notified courtesy booth cashier that sitter will be needed for this patient. Addendum: 12/08/19 at 0230 by DAMAIN PUCKETT RN RN at this time around 2247, attempted to call patient's family to help reorient/ calm down patient. There was no answer.
[2019-12-07] MEDS: LORazepam 0.5 MG TAB PO PRN (23:05)
--- NOTE | 2019-12-08 | NUR ---
PATIENT OUT OF BED TO BATHROOM Patient getting out of bed. This RN was at bedside when bed alarm went off. When patient was asked what he was doing getting out of bed at this time, patient began to yell and try to hit this RN with FWW and trying to grab this RN's arm. Patient was then calmed back down with help of other staff members and went to the bathroom for BM.
--- NOTE | 2019-12-08 00:08 | NUR ---
SECURITY AT BEDSIDE Patient still not cooperating. Patient continuing to try to leave room and still getting violent with staff. Patient continues to yell at staff members. Unable to reorient patient.
--- NOTE | 2019-12-08 00:13 | NUR ---
NOTE Patient now back into bed. bed alarm on
--- NOTE | 2019-12-08 00:14 | NUR ---
LABS unable to do blood draw at this time. Patient not cooperative.
--- NOTE | 2019-12-08 01:36 | NUR ---
ROUNDS Patient now finally laying in bed after sitting on edge of bed for some time. Lab will draw last troponin level in the morning since patient has been combative and uncooperative.
--- NOTE | 2019-12-08 05:00 | NUR ---
PT REFUSED VITALS AND HAS AGGRESSIVE BEHAVIOR RN NOTIFIED
[2019-12-08] MEDS: SODIUM CHLORIDE 0.9% 1,000 ML IV SCH ×3 (05:30→22:15)
--- NOTE | 2019-12-08 06:41 | NUR ---
NEXT OF KIN patient's daughterVerónica can also be reached at [phone]
--- NOTE | 2019-12-08 06:42 | NUR ---
SPOKE WITH FAMILY MEMBER Spoke with patient's daughter, Verónica. Password was obtained. She was telling me that her father was becoming way more confused and when she took him to his PCP, they started a new medication for him called Memantine. She noticed that this made his memory worse and that he became "very sick with it." When her father started to fall more often and becoming more sick, she decided to take him into the hospital. She reports no allergies to anything.
[2019-12-08 06:52] LABS: Basophils # (auto) 0 10 ^3/uL (0-0.2); Basophils % (auto) 0.5 % (0.0-2.0); Eosinophils # (auto) 0 10 ^3/uL (0-0.8); Eosinophils % (auto) 0.8 % (0.0-7.0); Hematocrit 36.5 % (41.0-53.0); Hemoglobin 12.5 g/dL (13.5-17.5); Lymphocytes # (auto) 1.2 10 ^3/uL (0.4-5.4); Lymphocytes % (auto) 31.3 % (10.0-50.0); Mean Corpuscular Hemoglobin 31.9 pg (28.0-32.0); Mean Corpuscular Hgb Conc. 34.3 g/dL (32.0-36.0); Mean Corpuscular Volume 92.9 fL (80.0-100.0); Monocytes # (auto) 0.6 10 ^3/uL (0-1.3); Monocytes % (auto) 16.5 % (0.0-12.0); Neutrophils % (auto) 50.9 % (37.0-80.0); Nucleated Red Blood Cells % 0.1 %; Platelet Count (auto) 106 10^3/uL (140-450); Red Blood Cells 3.93 10^6/uL (4.5-5.90); Red Cell Distribution Width 13.7 % (11.8-14.3); White Blood Cell 3.9 10^3/uL (4.4-10.8)
[2019-12-08 07:05] LABS: INR 1.06 (0.9-1.15); Partial Thromboplastin Time 37.5 sec (23.0-31.2)
[2019-12-08 07:09] LABS: Albumin 3.3 g/dL (3.4-5.0); Calcium 7.8 mg/dL (8.5-10.1); Magnesium 2.3 mg/dL (1.6-2.6); Potassium 3.3 mmol/L (3.5-5.1)
--- NOTE | 2019-12-08 07:10 | NUR ---
patient awake, alert, oriented to person, . pt does not want to remain in bed, pt oriented to room environment, explained need for bed alarm and safety precautions. bed locked and in lowest position, call light within reach.
[2019-12-08 07:12] LABS: BUN/Creatinine Ratio 34.2; Bilirubin, Total 0.7 mg/dL (0.2-1.0); Phosphorus 3.3 mg/dL (2.5-4.90); Total Protein 5.8 g/dL (6.4-8.2)
--- NOTE | 2019-12-08 08:20 | NUR ---
pt transferred to room with direct-continuous observation.
--- NOTE | 2019-12-08 10:20 | NUR ---
IV INFILTRATION TO LAC#20. IV CATHETER DC'D CATHETER INTACT, NO PHLEBITIS. NEW IV INSERTION TO MARCY#20, FLUSHING WELL. PT TOLERATED PROCEDURE WELL. CALL LIGHT WITHIN REACH.
[2019-12-08] MEDS: FINASTERIDE 5 MG TAB PO SCH (10:52)
[2019-12-08] MEDS: METOPROLOL TARTRATE 25 MG TAB PO SCH ×2 (10:52→22:00)
[2019-12-08] MEDS: CLOPIDOGREL BISULFATE 75 MG TAB PO SCH (10:52)
[2019-12-08] MEDS: MULTIPLE VITAMINS W/ MINERALS TAB PO SCH (10:52)
[2019-12-08] MEDS: LISINOPRIL 5 MG TAB PO SCH (10:53)
--- NOTE | 2019-12-08 11:00 | NUR ---
WOUND CARE NOTE: Wound care in to see patient per wound care request regarding "skin tear to Rt arm" that are noted present on admission. Bedside nurse took photograph of patient's wounds upon admission for reference. Patient is 89 years old male admitted for Syncope. Patient is resting in bed in Rm. 222B. Patient is awake, alert and oriented to self. He's turning and repositioning and his Montrell score is 19. Skin assessment done with the assistance of patient's nurse, ANA Ramirez. Patient noted with two 1cm linear skin tear Rt upper arm and Rt distal forearm. Skin tears are red over ecchymotic skin, minimal serosanguineous drainage noted, no odor noted.Cleansed skin tears with NS,patted dry with gauze,applied Thera honey gel and covered with Opti foam gentle dressing. No pressure injury noted. No further wound care monitoring needed at this time. RECOMMENDATION: Nursing to continue with Q3D/PRN dressing change to Rt arm skin tear per MD order, redistribute pressure points with pillows, reconsult for active wound, pressure injury, Low Montrell score of 12 and below. Addendum: 12/08/19 at 1437 by Reanna Lackey RN Amended: Links added.
--- NOTE | 2019-12-08 11:25 | NUR ---
DR. TILLMAN IN TO SEE PT.
--- NOTE | 2019-12-08 12:30 | NUR ---
assessment Patient is a 89 year old male who is confused. Prior to admission patient lived home with his daughter Eloise and functioned with assistance from his caregiver Cody [phone]. Eloise did not answer the phone when I called for my assessment. I called Cody the caregiver. Per Cody patient is to return home on discharge and Eloise or the neighbor will transport patient home. Patient has a cane and fww for home use. Patients PCP is Jaqueline Lafleur. Patient has no advanced directive. Patient has good family support. At this time patient has no post discharge needs identified. Cody informed me he has had surgery so he will not be able to care for patient for the next 3 weeks. Per Cody that why patients daughter Eloise came to stay with patient until he is able to come back to work for patient. Patients had surgery and is staying with her daughter until she heals. Patient will return home with Eloise on discharge. I will continue to try and call Eloise. Cody verbalized understanding and agreed to discharge plan home. Addendum: 12/08/19 at 1234 by Carin ELLIOTT Amended: Links added.
--- NOTE | 2019-12-08 13:24 | NUR ---
PT AMBULATING WITH FWW TO RESTROOM, PT BECAME WEAK, PT DESCRIBE "I GOT SHAKY". PT SAFELY TRANSFERRED TO BED. PT AWAKE, ALERT, ABLE TO VERBALIZE NEEDS. DR. TILLMAN CONTACTED, AND MADE AWARE OF STATUS IN REGARDS TO ACTIVE DC PLAN. MD WILL DC PT.
--- NOTE | 2019-12-08 13:40 | NUR ---
D/C Planning regarding social service consult for home health physical therapy, medication management and vitals. Clinical information was reviewed and approved by [facility]. Faxed clinical information to [place] and [facility]. Per Katy with [facility] patient has been accepted and will be seen within 24-48hrs upon d/c day.
--- NOTE | 2019-12-08 14:00 | NUR ---
LAYIN/63 HR:57 SITTIN/73 HR: 59 STANDIN/54 HR: 66
--- NOTE | 2019-12-08 14:02 | NUR ---
DR. TILLMAN MADE AWARE OF ORTHOSTATIC VITAL SIGNS. PER MD WILKES DC. DAUGHTER MADE AWARE.
[2019-12-08] MEDS: TAMSULOSIN HYDROCHLORIDE 0.4 MG CAP PO SCH (18:13)
--- NOTE | 2019-12-08 19:00 | NUR ---
Opening Note Assumed care of patient, awake and alert X self, he is sitting on the side of the bed talking, but making no point. No S/S of distress/SOB or pain. Patient was reorientated on place and time. Instructed on POC and to call for assist PRN, sitter at bedside for safety. will continue to monitor.
--- NOTE | 2019-12-08 20:00 | NUR ---
Family updated on pt status Family of PEDRO JOE updated on patient's status and condition. All questions and concerns addressed. verbalized understanding.
--- NOTE | 2019-12-08 21:57 | NUR ---
Aggressive Behavior Note Noted that sitter was asking patient where was he going, when I entered the room patient was already closed to the bathroom and was attached to the IV, I asked patient to let me disconnect him so he would not hurt himself he became very hostile and kept on pulling away. Sitter managed to bring the IV pole closer and at this point patient went inside de bathroom, grabbed the inside of a commode and tried to hit the sitter, then he grabbed the trash cane and was trying to hit us with it, I managed to take it off his hand, disconnected him from the IV and allowed him to use the restroom. I handed patient his walker before he came out of the restroom, and he walked out asking if he was in a movie theater. He walked to B bed and was reorientated to his own bed, then he laid back down.
[2019-12-08] MEDS: ATORVASTATIN 20 MG TAB PO SCH (22:00)
--- NOTE | 2019-12-09 02:43 | NUR ---
Patient was found leaving his room, around 0145, with sitter trying to talk to him into returning, patient was hitting the sitter. We tried to talk to the patient and his was not having any of it. I decided to walk with the patient to allowed him to get reoriented but that really never happened. We had to call security. It took security to talk to him for a while before he agreed to go to his room. Patient ended up calling Cody, his home care specialist to come to pick him up. Later Cody called the nurse's station and clarify he was not coming. We asked the patient to rest on his bed until the morning, when his home care specialist would come. After 2 hrs, patient agreed to lay down. Patient becomes very aggressive with the staff when trying to rationalize with him. He keeps asking and talking about a home and that he came here to and we are delaying it. He also talks about his friend that was a tennis ball coverer hand... Will continue to monitor and keeping patient safe.
[2019-12-09] MEDS: SODIUM CHLORIDE 0.9% 1,000 ML IV SCH ×3 (04:55→12:10)
--- NOTE | 2019-12-09 05:17 | NUR ---
Patient slept for about 2 1/2 hrs, now is up, sitting on the bed, still very confused.
--- NOTE | 2019-12-09 07:20 | NUR ---
PT SITTING. AWAKE, ALERT, ORIENTED TO SELF, , YEAR, PRESIDENT. PT MAKES RANDOM COMMENTS AT TIMES WITH NO SENSE. PT IS ABLE TO VERBALIZE NEEDS. REORIENTED PT TO ROOM ENVIRONMENT. RESUMED IV FLUIDS PER EMAR. PT COOPERATIVE OF CARE AT MOMENT. PT UNDER DIRECT OBSERVATION. WILL CONTINUE TO MONITOR.
[2019-12-09 09:00] VITALS: BP 113/54
[2019-12-09 09:57] LABS: BUN/Creatinine Ratio 30.3; Calcium 8.4 mg/dL (8.5-10.1); Potassium 3.5 mmol/L (3.5-5.1)
[2019-12-09] MEDS: LISINOPRIL 5 MG TAB PO SCH (10:00)
[2019-12-09] MEDS: METOPROLOL TARTRATE 25 MG TAB PO SCH (10:00)
[2019-12-09] MEDS: CLOPIDOGREL BISULFATE 75 MG TAB PO SCH (10:27)
[2019-12-09] MEDS: MULTIPLE VITAMINS W/ MINERALS TAB PO SCH (10:27)
[2019-12-09] MEDS: FINASTERIDE 5 MG TAB PO SCH (10:27)
[2019-12-09] MEDS ORDERED: ASPirin 81 mg TAB PO ONE (11:15)
[2019-12-09 13:00] VITALS: BP 138/85
--- NOTE | 2019-12-09 14:30 | NUR ---
GUIDO FROM [facility] ([phone]) TO CONTACT GUIDO UPON DC---HOSPICE WILL ARRANGE TRANSPORT.
[2019-12-09 17:00] VITALS: BP 146/72
--- NOTE | 2019-12-09 19:30 | NUR ---
Opening Shift Note Patient is AOx1 to person. No s/s of physical distress or SOB. Patient is sitting at end of bed confused about the situation. Patient agitated saying., "No one is listening to me." Patient then started talking about his children. Patient is unable to stay on topic when asked if he knew where he was at. Patient bed locked in lowest position and sitter at bedside. Will continue to monitor mood and status.
[2019-12-09] MEDS: ATORVASTATIN 20 MG TAB PO SCH (22:00)
[2019-12-10] MEDS: SODIUM CHLORIDE 0.9% 1,000 ML IV SCH ×2 (00:35→13:54)
--- NOTE | 2019-12-10 05:20 | NUR ---
PATIENT REFUSING TO STAY IN ROOM PATIENT HAS BEEN ASKED SEVERAL TIMES TO STAY IN HIS ROOM. PATIENT SAID "I DON'T WANT TO BE STUCK IN THIS ROOM." PATIENT IS AGITATED AND THREATENING TO FIND THE EXIT. PATIENT DELIBERATELY WALKED OUT OF ROOM WITH WALKER. WALKED WITH PATIENT TO KEEP HIM SAFE AND PATIENT WAS UPSET HE CANNOT FIND EXIT. PATIENT GOT LOUD AND SAID, "YOU KEEP TAKING ME AROUND, I AM GOING TO WRAP THIS AROUND YOUR NECK." PATIENT RE-ORIENTED TO PLACE. HOSPITALIST PAGED FOR MEDICATION TO REDUCE AGITATION. WILL CONTINUE TO MONITOR.
--- NOTE | 2019-12-10 05:30 | NUR ---
ORDER RECEIVED FROM HOSPITALIST PATIENT GIVEN MEDICATION PRESCRIBED FOR AGITATION. PATIENT IN ROOM SITTING ON HIS CHAIR. SITTER AT BEDSIDE, WILL CONTINUE TO MONITOR.
[2019-12-10] MEDS ORDERED: HALOPERIDOL LACTATE 5 MG/ML INJ VIAL ONE (05:43)
[2019-12-10] MEDS ORDERED: HALOPERIDOL LACTATE 5 MG/ML INJ VIAL IM ONE (05:45)
[2019-12-10] MEDS: LORazepam 0.5 MG TAB PO PRN (05:57)
[2019-12-10 08:00] VITALS: BP 129/74
--- NOTE | 2019-12-10 09:50 | NUR ---
Patient is lethargic, confused. Sitter at bedside.
[2019-12-10] MEDS ORDERED: ASPirin 81 mg TAB PO SCH (10:00)
--- NOTE | 2019-12-10 10:00 | NUR ---
Patient walking on the hallway with Physical Therapist
[2019-12-10] MEDS: CLOPIDOGREL BISULFATE 75 MG TAB PO SCH (10:42)
[2019-12-10] MEDS: FINASTERIDE 5 MG TAB PO SCH (10:43)
[2019-12-10] MEDS: MULTIPLE VITAMINS W/ MINERALS TAB PO SCH (10:43)
--- NOTE | 2019-12-10 10:45 | NUR ---
Dr. Goldstein at bedside. ordered to monitor the Orthostatic BP.
--- NOTE | 2019-12-10 10:50 | NUR ---
Regarding IM form regarding rights as a hospital inpatient and appeal discharge. Patient is Confused. Contact patient daughter Verónica at 09:16am and explained form. Verónica verbalize understanding.
--- NOTE | 2019-12-10 12:00 | NUR ---
Spoke with Dr. Goldstein if patient will be discharged today. MD made aware of patient's BP (Sitting) = 149/55, Heart rate = 57; BP (Laying down) = 165/80, Heart rate = 89; BP (Standing up) = 129/74, Heart rate = 89. Dr. Goldstein ordered to discharge the patient today.
[2019-12-10 13:43] VITALS: BP 101/50
--- NOTE | 2019-12-10 13:50 | NUR ---
Received a call from Kellen from hospice asking for a copy of discharge order. Kellen made aware that Mihaela is the Director Of Hotel Operations for the patient. Kellen to call Mihaela.
--- NOTE | 2019-12-10 13:52 | NUR ---
Paged [employer] Architect Mihaela.
--- NOTE | 2019-12-10 14:05 | NUR ---
re-assessment Patient is being discharged home today. Per patients daughter Amber and POA patient will be transported home by [facility] between 430pm and 5pm. Per Amber patient will be signing on to Hospice once he is home. Patients PCP Jaqueline Lafleur has ordered hospice. Home health will be cancelled. I have verified with Jaqueline from [facility] that patient will be admitted to hospice once he is home today 12/10/2019. Amber verbalized understanding and agreed to discharge plan home. Addendum: 12/10/19 at 1612 by Carin ELLIOTT Amended: Links added.
--- NOTE | 2019-12-10 15:08 | NUR ---
Called daughter Eloise ([phone]) that patient has discharge orders for home, they have to contact the hospice on patient's discharge. Eloise said patient will be picked up by the hospice for discharge.
--- NOTE | 2019-12-10 15:10 | NUR ---
Called Kellen of [facility] ([phone]) that patient has discharge orders for home, Hospice Nurse Carin Tate said hospice has to be contacted by the patient/daughter on discharge as per Dr. Goldstein. Kellen said she's arranging the transportation to pickle pumper the patient today. Kellen to call me back.
--- NOTE | 2019-12-10 15:30 | NUR ---
[facility] to sweet pickled fruit maker the patient between 4:30 pm to 5:30 pm today for discharge home.
--- NOTE | 2019-12-10 17:25 | NUR ---
Discharge instructions given as ordered. Encourage to follow up with PMD as instructed. Patient is confused. Daughter Eloise and Amber are aware that patient is discharged to home today, [facility] is transporting the patient. Medication reconciliation form completed and copy endorsed to [facility] personnel to be given to the patient's daughters. IV removed with catheter intact, pressure dressing applied. Telemetry unit returned to ICU. Patient taken to vehicle via gurney with all personal belongings including a FWW, accompanied by [facility] personnel. No distress noted at time of departure.
== END 2019-12-10 17:25 | disposition home or self-care (01) | DRG 280 ==
LOC: ER 13:34 → TELE 13:35 → TELE-CENTR 18:30
PROVIDERS: ADMIT Hospitalist; ATTEND Internal Medicine
DX: I21.4 Non-ST elevation (NSTEMI) myocardial infarction (principal); G93.41 Metabolic encephalopathy; I63.89 Other cerebral infarction; I50.22 Chronic systolic (congestive) heart failure; W01.0XXA Fall on same level from slipping, tripping and stumbling without subsequent striking against object, initial encounter; R79.89 Other specified abnormal findings of blood chemistry; I25.10 Atherosclerotic heart disease of native coronary artery without angina pectoris; I25.5 Ischemic cardiomyopathy; I71.2 Thoracic aortic aneurysm, without rupture; N40.0 Benign prostatic hyperplasia without lower urinary tract symptoms; J44.9 Chronic obstructive pulmonary disease, unspecified; D69.6 Thrombocytopenia, unspecified; E78.5 Hyperlipidemia, unspecified; F01.50 Vascular dementia, unspecified severity, without behavioral disturbance, psychotic disturbance, mood disturbance, and anxiety; G30.9 Alzheimer's disease, unspecified; I11.0 Hypertensive heart disease with heart failure; Z79.02 Long term (current) use of antithrombotics/antiplatelets; Z79.82 Long term (current) use of aspirin; Z79.899 Other long term (current) drug therapy; Z95.1 Presence of aortocoronary bypass graft; Z95.5 Presence of coronary angioplasty implant and graft; Z53.20 Procedure and treatment not carried out because of patient's decision for unspecified reasons; I95.1 Orthostatic hypotension; Y93.89 Activity, other specified; Y92.89 Other specified places as the place of occurrence of the external cause; Y99.8 Other external cause status
CPT/HCPCS: 36415; 70450; 71101; 80048; 80053; 80307; 81001; 82533; 83036; 83735; 83880; 84100; 84443; 84484; 85007; 85025; 85027; 85610; 85730; 87086; 93005; 96361; 96365; 96372; 97110; 97116; 97530; 99291; G0378